=== PATIENT | female | born 1995 | race African-American/Black ===

== ENCOUNTER 2019-11-17 08:08 | Emergency (ER) | payer OTHER ==
[~2019-11-17] VITALS: Ht 165.1 cm; Wt 108.0 kg
[2019-11-17 08:21] VITALS: BP 166/94
--- NOTE | 2019-11-17 08:46 | PHYS DOC ---
Past History Past Medical History: No Pertinent History Past Surgical History: No Surgical History Alcohol Use: None Adult General Chief Complaint Chief Complaint: MEDICAL CLEARANCE [facility] HPI Patient is a 24-year-old female who presents for medical clearance to return to work. Patient indicates that a couple of days ago she had not been feeling well and had episode of nausea and vomiting. She states that she thought was just due to what she had eaten earlier and she states that she is currently asymptomatic. Patient states that she was told to come in for evaluation by her workplace. She states that her mother is currently on quarantine due to reportedly being exposed to a healthcare worker who had come from [facility] where they might have been exposed to the coronavirus. Patient denies any history of cough or fever. She also denies headache.[] Review of Systems Review of Systems Constitutional: Denies fever or chills [] Respiratory: Denies cough or shortness of breath [] Cardiovascular: No additional information not addressed in HPI [] GI: Denies abdominal pain.admits to episode of nausea and vomiting without diarrhea [] Integument: Denies rash or skin lesions [] Neurologic: Denies headache, focal weakness or sensory changes [] Allergies Allergies Allergies Coded Allergies Type Severity Reaction Last Updated Verified No Known Drug Allergies 11/17/19 No Physical Exam Physical Exam Constitutional: Well developed, well nourished, no acute distress, non-toxic appearance. [] HENT: Normocephalic, atraumatic, bilateral external ears normal, oropharynx moist, no oral exudates, nose normal. [] Cardiovascular:Heart rate regular rhythm, no murmur [] Lungs & Thorax: Bilateral breath sounds clear to auscultation [] Abdomen: Bowel sounds normal, soft, no tenderness, no masses, no pulsatile masses. [] Skin: Warm, dry, no erythema, no rash. [] Current Patient Data Vital Signs Vital Signs Date Time Temp Pulse Resp B/P (MAP) Pulse Ox O2 Delivery O2 Flow Rate FiO2 11/17/19 08:21 98.1 90 18 166/94 (118) 100 Room Air EKG EKG [] Radiology/Procedures Radiology/Procedures [] Course & Med Decision Making Course & Med Decision Making Pertinent Labs and Imaging studies reviewed. (See chart for details) [] Dragon Disclaimer Dragon Disclaimer This electronic medical record was generated, in whole or in part, using a voice recognition dictation system. Departure Departure: Impression: Primary Impression: Examination for, medical, general Disposition: HOME, SELF-CARE Condition: STABLE Patient Instructions: Medical Screening Exam Additional Instructions: You may return to work at this time. Follow-up at this facility, any other emergency room or primary care provider should you develop symptoms of fever, cough, headache or other symptoms of concern. CORNELIO CARREON Jr. DO Nov 17, 2019 08:46
== END 2019-11-17 08:45 | disposition home or self-care (01) ==
LOC: ER 08:08
DX: Z00.8 Encounter for other general examination (principal); R11.2 Nausea with vomiting, unspecified
CPT/HCPCS: 99281

== ENCOUNTER 2020-11-16 10:42 | Emergency (ER) | payer OTHER ==
[~2020-11-16] VITALS: Ht 165.1 cm; Wt 108.0 kg
[2020-11-16 10:55] VITALS: BP 166/94
--- NOTE | 2020-11-16 11:18 | PHYS DOC ---
Past History Past Medical History: No Pertinent History Past Surgical History: No Surgical History Alcohol Use: Occasionally Adult General Chief Complaint Chief Complaint: ANKLE PROBLEM HPI HPI Patient is a 25yo female who presents for left posterior ankle pain. Onset was this morning after waking up without apparent trauma or known injury. Nothing known makes better or worse. Pain is focal to left posterior ankle with radiation to lateral edge of foot near base of 5th metatarsal. She has history of achilles issues but this feels different. No prior surgeries or known medical issues. No fever, bony abnormalities, motor/sensory deficits or other neurologic deficits. Review of Systems Review of Systems Fourteen body systems of review of systems have been reviewed. See HPI for pertinent positives and negative responses, other moura all other systems are negative, non-pertinent or non-contributory Allergies Allergies Allergies Coded Allergies Type Severity Reaction Last Updated Verified No Known Drug Allergies 11/16/20 No Physical Exam Physical Exam Constitutional: Well developed, well nourished, no acute distress, non-toxic appearance. HENT: Normocephalic, atraumatic, bilateral external ears normal, oropharynx moist, no oral exudates, nose normal. Eyes: PERRLA, EOMI, conjunctiva normal, no discharge. Neck: Normal range of motion, no tenderness, supple, no stridor. Cardiovascular: Heart rate regular per monitor Lungs & Thorax: No respiratory distress or accessory muscle use, bilateral chest rise Abdomen: Abdomen soft, non-tender, bowel sounds present in all quadrants, no guarding or rebound, nonacute abdomen. Skin: Warm, dry, no erythema, no rash. Back: No tenderness, no CVA tenderness. Extremities: No cyanosis, no clubbing, no edema. Palpable pedal pulses bilaterally, negative Ottowa foot rules, positive Ottowa ankle rule with impaired ambulation and lateral malleolus pain with palpation. Motor and sensory function intact, ROM intact but slightly decreased in all planes due to pain Neurologic: Alert and oriented X 3, grossly normal motor & sensory function, no focal deficits noted. Psychologic: Affect normal, judgement normal, mood normal. Current Patient Data Vital Signs Vital Signs Date Time Temp Pulse Resp B/P (MAP) Pulse Ox O2 Delivery O2 Flow Rate FiO2 11/16/20 10:55 98.6 92 18 166/94 (118) 98 EKG EKG [] Radiology/Procedures Radiology/Procedures PROCEDURE: ANKLE LEFT 3V 3 views left ankle without comparison for pain. FINDINGS: There is no fracture or acute osseous abnormality identified. Joints and soft tissues are grossly unremarkable. There is a small calcaneal enthesophyte. IMPRESSION: 1. No acute osseous abnormality. Electronically signed by: Sergio Brunner MD (11/16/2020 11:45 AM) [id number] Heart Score C/O Chest Pain: No Risk Factors: Risk Factors: DM, Current or recent (<one month) smoker, HTN, HLP, family history of CAD, obesity. Risk Scores: Risk Factors: DM, Current or recent (<one month) smoker, HTN, HLP, family history of CAD, obesity. Course & Med Decision Making Course & Med Decision Making Hemodynamically stable, history and physical exam consistent with non-concerning MSK issue. Low risk injury without trauma Radiograph unremarkable. Discussed likely diagnosis of contusion vs sprain vs strain, all likely self-limiting diagnoses that will respond to supportive care Patient has good access to PCP, close follow up advised, strict return preca utions discussed with good understanding by patient prior to departure Dragon Disclaimer Dragon Disclaimer This electronic medical record was generated, in whole or in part, using a voice recognition dictation system. Departure Departure: Impression: Primary Impression: Acute pain of left foot Disposition: 01 DC HOME SELF CARE/HOMELESS Condition: STABLE Referrals: PCP,NO (PCP) Patient Instructions: Foot Contusion Additional Instructions: You have been evaluated in the Emergency Department today for ankle pain. The x- ray of your ankle did not show any acute bony abnormalities. You can alternate Tylenol and/or Motrin every 4-6 hours to help control your pain. Please also rest, ice, and elevate your ankle to control your pain. Please follow up with your primary care physician as needed. If you do not have a primary doctor, you can call your insurance company to find one. If you do not have insurance, you can go to the finance/registration department for more assistance. Return to the Emergency Department if you experience worsening pain, numbn ess/tingling, change of color in your toes, or any other concerning symptoms. THEE BENITEZ DO Nov 16, 2020 11:18
--- NOTE | 2020-11-16 11:48 | RAD ---
3 views left ankle without comparison for pain. FINDINGS: There is no fracture or acute osseous abnormality identified. Joints and soft tissues are g rossly unremarkable. There is a small calcaneal enthesophyte. IMPRESSION: 1. No acute osseous abnormality. Electronically signed by: Sergio Brunner MD (11/16/2020 11:45 AM) [id number]
[2020-11-16] MEDS ORDERED: IBUPROFEN 600 MG TABLET. PO ONE (12:00)
== END 2020-11-16 12:07 | disposition home or self-care (01) ==
LOC: ER 10:42
DX: M79.672 Pain in left foot (principal); M25.572 Pain in left ankle and joints of left foot
CPT/HCPCS: 73610; 99283

== ENCOUNTER 2021-03-24 15:31 | Emergency (ER) | payer OTHER ==
[~2021-03-24] VITALS: Ht 165.1 cm; Wt 106.9 kg
[2021-03-24 15:50] VITALS: BP 132/99
[2021-03-24] MEDS ORDERED: AMOX1TAB61 PO (16:44)
[2021-03-24] MEDS ORDERED: FLUT10.6 IH (16:44)
[2021-03-24] MEDS ORDERED: ALBU2.5V8 IH (16:44)
[2021-03-24] MEDS ORDERED: PRED50TA PO (16:44)
--- NOTE | 2021-03-24 16:44 | PHYS DOC ---
Past History Past Medical History: No Pertinent History Past Surgical History: No Surgical History Alcohol Use: Rarely General Adult EDM: Chief Complaint: ASTHMA HPI: HPI: 25 yo F PMH asthma presents to the ed with complaints of nasal congestion, wet cough, and sore throat stating " I get sinus infections easily and it's triggering asthma." Reports symptoms have been present for the past 5 days. Is not a tobacco smoker. Has not been vaccinated for Covid. No history of known Covid. Is requesting an albuterol inhaler. No history of admission for asthma exacerbation, cannot recall any steroid use for her asthma. Review of Systems: Review of Systems: Constitutional: Denies fever or chills Eyes: Denies change in visual acuity HENT: Denies nasal flaring or sore throat Respiratory: Denies hemoptysis or increased work of breathing Cardiovascular: Denies chest pain or edema GI: Denies nausea, vomiting, : Denies dysuria or vaginal bleeding Musculoskeletal: Denies back pain or joint pain Integument: Denies rash or diaphoresis Neurologic: Denies headache or neck stiffness Psychiatric: Denies depression or anxiety Allergies: Allergies: Allergies Coded Allergies Type Severity Reaction Last Updated Verified No Known Drug Allergies 03/24/21 No Physical Exam: PE: Constitutional: Well developed, well nourished, no acute distress, non-toxic appearance. HENT: Normocephalic, atraumatic, nasal congestion/voice Eyes: EOMI, conjunctiva normal, no discharge. Neck: Normal range of motion, supple, Cardiovascular: S1/2 present, regular rhythm Lungs & Thorax: Speaking in full sentences, bilateral equal chest rise, no tachypnea or increased work of breathing Abdomen: soft, no tenderness, Skin: Warm, dry, no erythema, no rash. [] Extremities: No tenderness, no cyanosis, no lower extremity edema Neurologic: Alert and oriented X 3, normal motor function, normal sensory function, no focal deficits noted. [] Psychologic: Affect normal, judgement normal, mood normal. [] Current Patient Data: Vital Signs: Vital Signs Date Time Temp Pulse Resp B/P (MAP) Pulse Ox O2 Delivery O2 Flow Rate FiO2 03/24/21 15:50 98.6 92 18 132/99 96 EKG: EKG: [] Radiology/Procedures: Radiology/Procedures: [] Impressions: PERC rule for pulmonary embolus 0 criteria No need for further workup, as <2% chance of PE. If no criteria are positive and clinicians pre-test probability is <15%, PERC Rule criteria are satisfied. Heart Score: C/O Chest Pain: No Risk Factors: Risk Factors: DM, Current or recent (<one month) smoker, HTN, HLP, family history of CAD, obesity. Risk Scores: Score 0 - 3: 2.5% MACE over next 6 weeks - Discharge Home Score 4 - 6: 20.3% MACE over next 6 weeks - Admit for Clinical Observation Score 7 - 10: 72.7% MACE over next 6 weeks - Early Invasive Strategies Course & Med Decision Making: Course & Med Decision Making Pertinent Labs and Imaging studies reviewed. (See chart for details) Concern for upper respiratory infection, suspect acute viral sinusitis,, cannot exclude Covid. Patient declined Covid testing (low suspicion given no lack of taste or smell, fatigue or myalgias). Will prescribe Augmentin with understanding to wait until day 7 or 10 -to fill if symptoms persist past this duration. Will discharge home with strict ED return precautions were given for increased work of breathing, syncope, chest pain, or neurologic deficits. Encouraged urgent outpatient follow-up with PMD and ENT. Life-threatening processes were considered but are low suspicion at this time, given history, physical exam and ED workup. Pt was educated on all prescription medications and adverse effects. All patient's questions were answered and pt was stable at time of discharge. Life/limb-threatening differential includes but is not limited to, airway emergency or respiratory distress/ARDS or fatigue or head or neck swelling, toxidrome, sepsis/shock, angioedema, anaphylaxis, congestive heart failure, my ocarditis, acute myocardial infarction, dysrhythmias, cardiomyopathy, venous thromboembolism, pulmonary emboli, acute necrotizing hemorrhagic encephalopathy ,cerebral venous thrombosis, meningitis, encephalitis or CVA. I have spoken with the patient and/or caregivers. I explained the patient's condition, diagnoses and treatment plan based on the information available to me at this time. I have answered the patient and/or caregiver's questions and addressed any concerns. The patient and/or caregivers have a good understanding of patient's diagnosis, condition and treatment plan as can be expected at this point. Vital signs have been stable. Patient's condition is stable and appropriate for discharge from the emergency department. Patient will pursue further outpatient evaluation with primary care physician or other designated or consulting physician as outlined in the discharge instructions. The patient and/or caregivers are agreeable to this plan of care and follow-up instructions have been explained in detail. The patient and/or caregivers have received these instructions in written form and have expressed an understanding of the discharge instructions. The patient and/or caregivers are aware that any significant change of condition or worsening of symptoms should prompt immediate return to this or the closest emergency department [facility] Disclaimer: Eloina Disclaimer: This electronic medical record was generated, in whole or in part, using a voice recognition dictation system. Departure Departure: Impression: Primary Impression: Acute sinusitis Additional Impression: Asthma Disposition: HOME / SELF CARE / HOMELESS Condition: STABLE Referrals: PCP,NO (PCP) [facility]-Dr. Méndez or Dr. Goff within 1 week for routine care [facility] [address], [address] [place] [address] Patient Instructions: Asthma, Adult, Sinusitis Additional Instructions: FOLLOW UP WITH ENT: FOR DEFINITIVE MANAGEMENT of sinusitis Zoltan Sauceda DO [address] [place] [address] [address] [place] [address] [facility] [address] [place] [address] [address] [place] [address] EMERGENCY DEPARTMENT GENERAL DISCHARGE INSTRUCTIONS Thank you for coming to [facility] (ED) today and trusting us with you care. We trust that you had a positivie experience in our Emergency Department. If you wish to speak to the department management, you may call the director at [phone]. YOUR FOLLOW UP INSTRUCTIONS ARE FOLLOWS: 1. Do you have a private Doctor? If you do not have a private doctor, please ask for a resource list of physicians or clinics that may be able to assist you with follow up care. 2. The Emergency Physician has interpreted your x-rays. The X-Ray specialist will also review them. If there is a change in the findings, you will be notified in 48 hours when at all possible. 3. A lab test or culture has been done, your results will be reviewed and you will be notified if you need a change in treatment. ADDITIONAL INSTRUCTIONS AND INFORMATION: 1. Your care today has been supervised by a physician who is specially trained in emergency care. Many problems require more than one evaluation for a complete diagnosis and treatment. We recommend that you schedule your follow up appointment as recommended to ensure complete treatment of you illness or injury. If you are unable to obtain follow up care and continue to have a problem, or if your condition worsens, we recommend that you return to the ED. 2. We are not able to safely determine your condition over the phone nor are we able to give sound medical advice over the phone. For these safety reasons, if you call for medical advice we will ask you to come to the ED for further evaluation. 3. If you have any questions regarding these discharge instructions please call the ED at [phone]. SAFETY INFORMATION: In the interest of safety, wellness, and injury prevention; we encourage you to wear your sealbelt, if you smoke; quite smoking, and we encourage family to use a protective helmet for bicycling and other sporting events that present an increased risk for head injury. IF YOUR SYMPTOMS WORSEN OR NEW SYMPTOMS DEVELOP, OR YOU HAVE CONCERNS ABOUT YOUR CONDITION; OR IF YOUR CONDITION WORSENS WHILE YOU ARE WAITING FOR YOUR FOLLOW UP APPOINTMENT; EITHER CONTACT YOUR PRIMARY CARE DOCTOR, THE PHYSICIAN WHOSE NAME AND NUMBER YOU WERE GIVEN, OR RETURN TO THE ED IMMEDIATELY. Scripts Amoxicillin/Potassium Clav (AUGMENTIN 875-125 TABLET) 1 Each Tablet 1 TAB PO BID for sinusitis for 10 Days, #20 TAB 0 Refills if symptoms persist for 7-10 days Prov: KENNEDIROSELINE ALARCON Jose DO 03/24/21 Albuterol Sulfate (VENTOLIN HFA INHALER) 18 Gm Hfa.aer.ad 1 PUFF IH PRN Q4HRS PRN for FOR ASTHMA for 30 Days, EACH 0 Refills Prov: KENNEDIROSELINE ALARCON Jose DO 03/24/21 Fluticasone Propionate (FLOVENT 44MCG HFA) 10.6 Gm Aer.w.adap 2 PUFF IH BID for asthma for 30 Days, #1 INHALER 1 Refill Prov: ROSELINE RAMÍREZ DO 03/24/21 Prednisone (PREDNISONE) 50 Mg Tablet 50 MG PO DAILY for sinusitis for 5 Days, #5 TAB Prov: ROSELINE RAMÍREZ DO 03/24/21 DARRELLROSELINE M DO Mar 24, 2021 16:44
== END 2021-03-24 16:59 | disposition home or self-care (01) ==
LOC: ER 15:31
DX: J45.909 Unspecified asthma, uncomplicated (principal); J01.90 Acute sinusitis, unspecified
CPT/HCPCS: 99283